=== PATIENT | female | born 1985 | race Two or more races ===

== ENCOUNTER 2020-12-23 12:25 | Emergency (ER) | payer OTHER ==
[~2020-12-23] VITALS: Ht 144.8 cm; Wt 68.2 kg
[~2020-12-23 12:25] MED LIST: ACET-704 PO; IBUP-1060 PO; LABE100T5 PO; PREN1TAB54 PO
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
[2020-12-23 14:22] VITALS: BP 117/75
== END 2020-12-23 14:32 | disposition home or self-care (01) ==
LOC: ER 12:25
DX: O9A.211 Injury, poisoning and certain other consequences of external causes complicating pregnancy, first trimester (principal); S13.9XXA Sprain of joints and ligaments of unspecified parts of neck, initial encounter; R51.9 Headache, unspecified; Z3A.14 14 weeks gestation of pregnancy; V49.49XA Driver injured in collision with other motor vehicles in traffic accident, initial encounter; Y93.89 Activity, other specified; Y92.488 Other paved roadways as the place of occurrence of the external cause; Y99.8 Other external cause status
CPT/HCPCS: 76801; 99285

== ENCOUNTER 2021-06-17 09:16 | Inpatient (IN) | payer OTHER ==
[~2021-06-17] VITALS: Ht 152.4 cm; Wt 170.0 kg
[2021-06-17] MEDS ORDERED: IV RINGERS,LACTATED 1000ML 1,000 ML IV SCH (10:30)
[2021-06-17] MEDS ORDERED: TERBUTALINE 1 MG/ML VIAL. SQ PRN (10:30)
[2021-06-17] MEDS ORDERED: LIDOCAINE 1% PF 30 ML VIAL. INJ PRN (10:30)
[2021-06-17] MEDS ORDERED: 0.9 % SODIUM CHLORIDE 10 ML DISP.SYRIN. IV PRN ×2 (10:30→17:00)
[2021-06-17] MEDS ORDERED: OXYTOCIN 30 UNIT/500 ML PREMIX 500 ML IV PRN ×3 (10:30→17:00)
[2021-06-17] MEDS ORDERED: IBUPROFEN 400 MG TABLET. PO PRN (10:30)
[2021-06-17] MEDS ORDERED: BUTORPHANOL 2 MG/ML VIAL. IVP PRN ×2 (10:30)
--- NOTE | 2021-06-17 10:32 | PDOC1 ---
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 The pt was found to be 3-4 cm dilated and was subsequently admitted. PMH: h/o cervical dysplasia PSH: Denies Meds: PNV All: NKDA OBHx: TSVD x 1 SH: no tob, no EtOH FH: noncontributory Allergies: Coded Allergies: No Known Drug Allergies (Unverified , 09/07/13) Physical Exam: PE: GENERAL: No apparent distress. Alert and oriented. HEENT: Head normocephalic, atraumatic. NECK: Supple LUNGS: Clear to auscultation. HEART: RRR, S1, S2 present, pulses intact ABDOMEN: Soft, positive bowel sounds. EXTREMITIES: No cyanosis or edema. NEUROLOGIC: Normal speech, normal tone PSYCHIATRIC: Normal affect, normal mood. SKIN: No ulceration. FHT: 150s +acels/no decels/mLTV Severance: 4 min SVE: 3-4/100/-1 Assessment & Plan: A/P 35y @ 39.2 by 17wk u/s 1.) Active labor 2.) MILADY - [place] core man 3.) Fibroid - 5 cm 4.) TDAP given 04/09/21 5.) Flu vaccine 01/09/21 6.) Fetus cat I FHT 7.) GBS pos on PCN YING REYNA MD June 17, 2021 10:32
[2021-06-17] MEDS ORDERED: PENICILLIN G K 5,000,000 UNIT in IV DEXTROSE 5% 100ML 100 ML IV ONE (11:00)
[2021-06-17 11:56] VITALS: BP 122/82
[2021-06-17 12:31] LABS: BASO # 0.1 x10^3/uL (0.0-0.2); BASO % 1 % (0-3); EOS # 0.1 x10^3/uL (0.0-0.7); EOS % 0 % (0-3); HEMATOCRIT 38.9 % (36.0-47.0); HEMOGLOBIN 13.1 g/dL (12.0-15.5); LYMPH # 1.9 x10^3/uL (1.0-4.8); LYMPH % 14 % (24-48); MEAN CORPUSCULAR HEMOGLOBIN 30 pg (25-35); MEAN CORPUSCULAR HGB CONC 34 g/dL (31-37); MEAN CORPUSCULAR VOLUME 90 fL (79-100); MONO # 0.7 x10^3/uL (0.0-1.1); MONO % 5 % (0-9); NEUT # 10.6 x10^3/uL (1.8-7.7); NEUT % 80 % (31-73); PLATELET COUNT 245 x10^3/uL (140-400); RED BLOOD COUNT 4.34 x10^6/uL (3.50-5.40); RED CELL DISTRIBUTION WIDTH 12.6 % (11.5-14.5); WHITE BLOOD COUNT 13.4 x10^3/uL (4.0-11.0)
[2021-06-17] MEDS ORDERED: PENICILLIN G K 2,500,000 UNIT in IV DEXTROSE 5% 50 ML IV SCH (15:00)
[2021-06-17] MEDS ORDERED: OXYTOCIN PREMIX 30 UNIT/500 ML NS BAG. IV ONE (15:30)
--- NOTE | 2021-06-17 16:58 | PDOC4 ---
VAGINAL DELIVERY DATE DATE: 06/17/21 TIME: 16:57 TIME Patient delivered a viable female over intact perineum at 1637. Wt 7 lb 0.2 oz. Apgars 8/9. Placenta delivered spontaneously, intact with 3VC. No lacerations noted. Good hemostasis noted. 20 U of Pit given with IVF. EBL 200 cc. WEIGHT Weight [ ] YING REYNA MD June 17, 2021 16:58
[2021-06-17] MEDS ORDERED: SIMETHICONE 80 MG TAB.CHEW PO PRN (17:00)
[2021-06-17] MEDS ORDERED: BENZOCAINE 20% TOPICAL AEROSOL SPRAY 57GM CAN. TP PRN (17:00)
[2021-06-17] MEDS ORDERED: HYDROCORTISONE 1% TOPICAL OINTMENT 30GM TUBE. TP PRN (17:00)
[2021-06-17] MEDS ORDERED: MAG HYDROX/ALUMINUM HYD/SIMETH 30 ML ORAL.SUSP PO PRN (17:00)
[2021-06-17] MEDS ORDERED: ZOLPIDEM 5 MG TABLET. PO PRN (17:00)
[2021-06-17] MEDS ORDERED: ACETAMINOPHEN 325 MG TABLET. PO PRN (17:00)
[2021-06-17] MEDS ORDERED: diphenhydrAMINE HCL 25 MG CAPSULE PO PRN (17:00)
[2021-06-17] MEDS ORDERED: MAGNESIUM HYDROXIDE 2,400 MG/30 ML ORAL.SUSP. PO PRN (17:00)
[2021-06-17] MEDS ORDERED: MMR per PROTOCOL. MC PRN (17:00)
[2021-06-17] MEDS ORDERED: oxyCODONE/APAP 5/325 1 TAB TABLET PO PRN (17:00)
[2021-06-17] MEDS ORDERED: TDaP (BOOSTRIX) per PROTOCOL. MC PRN (17:00)
[2021-06-17] MEDS ORDERED: PHENYLEPH/MINERAL OIL/PETROLAT RECTAL OINTMENT TUBE. RC PRN (17:00)
[2021-06-17 19:26] VITALS: BP 113/70
[2021-06-17 20:25] VITALS: BP 123/60
[2021-06-17] MEDS: IBUPROFEN 400 MG TABLET. PO PRN (23:11)
[2021-06-18 00:25] VITALS: BP 115/73
--- NOTE | 2021-06-18 00:40 | NUR ---
pt decided she wants to supplement with formula. offered a breast pump to pt but pt already received a breast pump with her insurance this . pt signed document acknowledging education on benefits of breast feeding and decision to supplement with formula.
[2021-06-18 04:20] VITALS: BP 118/77
[2021-06-18] MEDS: IBUPROFEN 400 MG TABLET. PO PRN ×3 (05:17→21:13)
[2021-06-18] MEDS ORDERED: FERROUS SULFATE 325 MG TABLET. PO SCH (08:00)
[2021-06-18 08:25] LABS: HEMATOCRIT 34.8 % (36.0-47.0); HEMOGLOBIN 11.4 g/dL (12.0-15.5); RED BLOOD COUNT 3.81 x10^6/uL (3.50-5.40); RED CELL DISTRIBUTION WIDTH 12.8 % (11.5-14.5); WHITE BLOOD COUNT 15.3 x10^3/uL (4.0-11.0)
--- NOTE | 2021-06-18 08:49 | PDOC ---
DIRECTOR STATISTICAL PROGRAMMING PROGRESS NOTE Date of Service: DATE: 06/18/21 TIME: 08:44 Subjective: 35 y/o female is PPD #1 status post routine spontaneous vaginal delivery. Pain is well controlled by oral pain medications. Lochia minimal. Patient denies shortness of breath, chest pain, or headache. Objective: Vital Signs: Vital Signs Date Time Temp Pulse Resp B/P (MAP) Pulse Ox O2 Delivery O2 Flow Rate FiO2 06/17/21 11:56 97.9 82 20 122/82 (95) 97.9 06/17/21 19:26 98 06/17/21 19:30 Room Air Vital Signs Date Time Temp Pulse Resp B/P (MAP) Pulse Ox O2 Delivery O2 Flow Rate FiO2 06/18/21 04:20 98.3 68 18 118/77 (91) 97 98.3 06/17/21 19:30 Room Air Labs: Laboratory Tests Test 06/17/21 10:00 06/17/21 11:00 06/17/21 11:25 06/18/21 07:25 Urine Collection Type Unknown Urine Color (Auto) Light yellow Urine Turbidity Clear Urine pH (Auto) 6.5 (<5.0-8.0) Urine Specific [place] 1.017 (1.000-1.030) Urine Protein (Auto) Negative mg/dL (Negative) Urine Glucose (Auto)(UA) Negative mg/dL (Negative) Urine Ketones (Auto) Negative mg/dL (Negative) Urine Blood (Auto) Negative (Negative) Urine Nitrite (Auto) Negative (Negative) Urine Bilirubin (Auto) Negative (Negative) Urine Urobilinogen (Auto) Normal mg/dL (Normal) Urine Leukocyte Esterase (Auto) Negative (Negative) White Blood Count 13.4 x10^3/uL (4.0-11.0) H 15.3 x10^3/uL (4.0-11.0) H Red Blood Count 4.34 x10^6/uL (3.50-5.40) 3.81 x10^6/uL (3.50-5.40) Hemoglobin 13.1 g/dL (12.0-15.5) 11.4 g/dL (12.0-15.5) L Hematocrit 38.9 % (36.0-47.0) 34.8 % (36.0-47.0) L Mean Corpuscular Volume 90 fL (79-100) 91 fL (79-100) Mean Corpuscular Hemoglobin 30 pg (25-35) 30 pg (25-35) Mean Corpuscular Hemoglobin Concent 34 g/dL (31-37) 33 g/dL (31-37) Red Cell Distribution Width 12.6 % (11.5-14.5) 12.8 % (11.5-14.5) Platelet Count 245 x10^3/uL (140-400) 205 x10^3/uL (140-400) Neutrophils (%) (Auto) 80 % (31-73) H Lymphocytes (%) (Auto) 14 % (24-48) L Monocytes (%) (Auto) 5 % (0-9) Eosinophils (%) (Auto) 0 % (0-3) Basophils (%) (Auto) 1 % (0-3) Neutrophils # (Auto) 10.6 x10^3/uL (1.8-7.7) H Lymphocytes # (Auto) 1.9 x10^3/uL (1.0-4.8) Monocytes # (Auto) 0.7 x10^3/uL (0.0-1.1) Eosinophils # (Auto) 0.1 x10^3/uL (0.0-0.7) Basophils # (Auto) 0.1 x10^3/uL (0.0-0.2) Treponema pallidum Antibody Nonreactive (Nonreactive) SARS-CoV-2 (PCR) Not detected (NOT DETECTD) SARS-CoV-2 Antigen (Rapid) Negative (NEGATIVE) Laboratory Tests 06/17/21 11:00 06/18/21 07:25 Laboratory Tests 06/18/21 07:25 Physical Exam: GENERAL: No apparent distress. Alert and oriented. HEENT: Head normocephalic, atraumatic. NECK: Supple LUNGS: Clear to auscultation. HEART: RRR, S1, S2 present, pulses intact ABDOMEN: Soft, positive bowel sounds. EXTREMITIES: No cyanosis or edema. NEUROLOGIC: Normal speech, normal tone PSYCHIATRIC: Normal affect, normal mood. SKIN: No ulceration. Uterus: fundus firm at umbilicus with palpable uterine fibroid Assessment & Plan: 35 y/o 1. PPD #1 status post spontaneous vaginal delivery. 2. Continue routine care. 3. Normal labs reviewed this morning. ANNELIESE HALLMAN MD June 18, 2021 08:49
[2021-06-18 09:00] VITALS: BP 114/77
[2021-06-18] MEDS: PRENATAL MULTIVITAMIN TABLET. PO SCH (09:03)
[2021-06-18] MEDS: DOCUSATE SODIUM 100 MG CAPSULE. PO PRN (09:03)
[2021-06-18 13:00] VITALS: BP 112/74
[2021-06-18 18:00] VITALS: BP 118/78
[2021-06-18 21:54] VITALS: BP 120/80
[2021-06-19 05:00] VITALS: BP 124/78
[2021-06-19] MEDS: IBUPROFEN 400 MG TABLET. PO PRN ×2 (05:18→13:20)
[2021-06-19 08:00] VITALS: BP 118/54
[2021-06-19] MEDS: DOCUSATE SODIUM 100 MG CAPSULE. PO PRN (09:14)
[2021-06-19] MEDS: PRENATAL MULTIVITAMIN TABLET. PO SCH (09:14)
[2021-06-19 11:00] VITALS: BP 123/86
[2021-06-19 13:00] VITALS: BP 130/84
--- NOTE | 2021-06-19 13:20 | NUR ---
Pt. dc'd to home with significant other. Verbal and written DC instructions given and pt v/u. Pt. plans to follow-up with [facility] in six weeks. Ambulated to personal vehicle.
== END 2021-06-19 13:20 | disposition home or self-care (01) | DRG 807 ==
LOC: 3 SO LND 09:16 → OBSVTOIN 16:37 → 3 SO LND 19:30
PROVIDERS: ADMIT Obstetrics & Gynecology; ATTEND Obstetrics & Gynecology
PROC: 10E0XZZ Delivery of Products of Conception, External Approach (ICD-10-PCS; principal; 2021-06-17)
DX: O99.824 Streptococcus B carrier state complicating childbirth (principal); Z37.0 Single live birth; O09.893 Supervision of other high risk pregnancies, third trimester; Z87.410 Personal history of cervical dysplasia; Z3A.39 39 weeks gestation of pregnancy; Z20.822 Contact with and (suspected) exposure to COVID-19; O34.13 Maternal care for benign tumor of corpus uteri, third trimester; D25.9 Leiomyoma of uterus, unspecified
CPT/HCPCS: 36415; 81003; 85025; 85027; 86592; 86850; 86900; 86901; 87426; G0378; G0379; J0595; J2540; J2590; J7060; J7120; U0003